=== PATIENT | female | born 2000 | race Caucasian/White ===

== ENCOUNTER 2018-01-27 22:15 | Emergency (ER) | payer BC, MEDICAID ==
[~2018-01-27] VITALS: Ht 167.6 cm; Wt 59.0 kg
[~2018-01-27 22:15] MED LIST: OXCA600T5 PO
[2018-01-27 22:46] LABS: BASOPHILS # (AUTO) 0.1 X10'3 (0-0.2); BASOPHILS % (AUTO) 0.4 % (0-1); EOSINOPHILS # (AUTO) 0.4 X10'3 (0-0.9); EOSINOPHILS % (AUTO) 3.1 % (0-6); HEMOGLOBIN 14.2 g/dl (12.0-16.0); LYMPHOCYTES # (AUTO) 2.4 X10'3 (1.1-4.8); LYMPHOCYTES % (AUTO) 17.7 % (21-51); MEAN CORPUSCULAR HEMOGLOBIN 30.7 PG (27.0-31.0); MEAN CORPUSCULAR VOLUME 92.8 FL (78-98); MEAN PLATELET VOLUME 9.5 FL (7.4-10.4); MONOCYTES # (AUTO) 0.9 X10'3 (0-0.9); MONOCYTES % (AUTO) 6.5 % (2-12); NEUTROPHILS % (AUTO) 72.3 % (42-75); PLATELET COUNT 306 X10'3 (140-440); RED BLOOD COUNT 4.64 X10'6 (4.20-5.60); RED CELL DISTRIBUTION WIDTH 13.3 % (11.5-14.5); WHITE BLOOD COUNT 13.8 X10'3 (4.5-11.0)
[2018-01-27 23:00] LABS: ALANINE AMINOTRANSFERASE 27 U/L (12-78); ALBUMIN 4.5 G/DL (3.4-5.0); ALBUMIN/GLOBULIN RATIO 1.3 (1.1-1.5); ALKALINE PHOSPHATASE 74 IU/L (20-180); ANION GAP 9 (8-16); ASPARTATE AMINO TRANSFERASE 19 U/L (10-37); BILIRUBIN,TOTAL 0.4 MG/DL (0.1-1.0); BLOOD UREA NITROGEN 11 MG/DL (7-18); BUN/CREATININE RATIO 13.6 (6.6-38.0); CALCIUM 9.1 MG/DL (8.5-10.1); CHLORIDE 102 MMOL/L (99-107); CREATININE 0.81 MG/DL (0.40-0.90); GLUCOSE 90 MG/DL (70-104); POTASSIUM 3.5 MMOL/L (3.5-5.1); SODIUM 138 MMOL/L (135-145); TOTAL CARBON DIOXIDE 26.7 MMOL/L (24-32); eGFR > 90 ML/MIN
[2018-01-27 23:20] LABS: CLARITY,URINE CLEAR (Clear); COLOR,URINE YELLOW (Yellow); GLUCOSE, URINE NEGATIVE (Neg); KETONES,URINE 15 mg/dl (Neg); LEUKOCYTE ESTERASE ,URINE TRACE (Neg); NITRITES, URINE NEGATIVE (Neg); OCCULT BLOOD,URINE TRACE-INTACT (Neg); PROTEIN,URINE NEGATIVE (Neg); URINE HCG NEGATIVE (NEG); UROBILINOGEN,URINE 0.2 E.U/dL (0.2-1.0)
[2018-01-27 23:26] LABS: UA COLLECTION TYPE CLN CATCH MIDSTREAM
[2018-01-27 23:29] LABS: BACTERIA,URINE FEW /HPF (Neg); MUCUS STRANDS FEW /LPF (Neg); RBC,URINE 0-2 /HPF (0-2); SQUAMOUS EPITHELIAL CELL,UR FEW /LPF (FEW); WBC,URINE 0-4 /HPF (0-4)
[2018-01-27 23:51] LABS: LIPASE 82 U/L (73-393)
[2018-01-28] MEDS: ketorolac trometh. 30mg/ml inj. IV ONE (00:24)
[2018-01-28] MEDS: normal saline 1000ml 1,000 ML IV ONE (00:24)
[2018-01-28] MEDS: metoclopramide 5 mg/ml inj IV ONE (00:24)
[2018-01-28] MEDS ORDERED: ONDA8TAB9 PO (01:25)
[2018-01-28] MEDS: ondansetron/PF 4mg/2ml inj IV ONE (01:43)
[2018-01-28 01:46] VITALS: BP 105/79
== END 2018-01-28 01:54 | disposition home or self-care (01) ==
LOC: ER 22:16
DX: K29.70 Gastritis, unspecified, without bleeding (principal); N92.6 Irregular menstruation, unspecified; Z88.2 Allergy status to sulfonamides; W21.05XA Struck by basketball, initial encounter; Y93.67 Activity, basketball; Y92.89 Other specified places as the place of occurrence of the external cause; Y99.8 Other external cause status
CPT/HCPCS: 36415; 80053; 81001; 81025; 83690; 85025; 87088; 96374; 96375; 99283; J1885; J2405; J2765; J7030

== ENCOUNTER 2020-08-23 14:28 | Emergency (ER) | payer BC, MEDICAID ==
[~2020-08-23] VITALS: Ht 167.6 cm; Wt 68.4 kg
[~2020-08-23 14:28] MED LIST changes: +ONDA8TAB9 PO
[2020-08-23 15:51] VITALS: BP 128/81
== END 2020-08-23 22:01 | disposition left against medical advice (07) ==
LOC: EEVIPCON 14:30 → ER 14:30
DX: T76.21XA Adult sexual abuse, suspected, initial encounter (principal); Z53.21 Procedure and treatment not carried out due to patient leaving prior to being seen by health care provider; Y09 Assault by unspecified means

== ENCOUNTER 2021-11-14 03:13 | Emergency (ER) | payer BC, MEDICAID ==
[~2021-11-14] VITALS: Ht 167.6 cm; Wt 72.7 kg
--- NOTE | 2021-11-14 03:40 | NUR ---
PT ADAMANTLY REFUSED ALL TREATMENT AND TESTING WHEN TALKING TO DR PEREZ. I WAS PRESENT IN ROOM WHEN PT REFUSED TX AND TESTING.
[2021-11-14 03:47] VITALS: BP 119/90
== END 2021-11-14 03:50 ==
LOC: ER 03:14
DX: Z00.8 Encounter for other general examination (principal); F41.9 Anxiety disorder, unspecified; F32.A Depression, unspecified; F17.200 Nicotine dependence, unspecified, uncomplicated; Z88.1 Allergy status to other antibiotic agents; Z88.8 Allergy status to other drugs, medicaments and biological substances; Z79.899 Other long term (current) drug therapy
CPT/HCPCS: 99283

== ENCOUNTER 2022-04-25 10:16 | Emergency (ER) | payer BC, MEDICAID ==
[~2022-04-25] VITALS: Ht 167.6 cm; Wt 70.5 kg
[2022-04-25 10:23] VITALS: BP 116/72
[2022-04-25] MEDS ORDERED: amox tr/potassium clavulanate 875/125mg TAB PO ONE (12:00)
[2022-04-25] MEDS ORDERED: AMOX-117 PO (12:26)
== END 2022-04-25 12:51 | disposition home or self-care (01) ==
LOC: ER 10:18
DX: J32.9 Chronic sinusitis, unspecified (principal); H92.09 Otalgia, unspecified ear; F41.9 Anxiety disorder, unspecified; F32.9 Major depressive disorder, single episode, unspecified; Z88.2 Allergy status to sulfonamides; Z88.8 Allergy status to other drugs, medicaments and biological substances; Z79.899 Other long term (current) drug therapy
CPT/HCPCS: 99283

== ENCOUNTER 2022-07-09 11:44 | Emergency (ER) | payer BC, MEDICAID ==
[~2022-07-09] VITALS: Ht 170.2 cm; Wt 102.4 kg
[2022-07-09 12:25] LABS: URINE HCG NEGATIVE (NEG)
[2022-07-09 12:35] LABS: CLARITY,URINE SLIGHTLY CLOUDY (Clear); COLOR,URINE YELLOW (Yellow); GLUCOSE, URINE NEGATIVE (Neg); KETONES,URINE NEGATIVE (Neg); LEUKOCYTE ESTERASE ,URINE SMALL (Neg); NITRITES, URINE NEGATIVE (Neg); OCCULT BLOOD,URINE NEGATIVE (Neg); PROTEIN,URINE NEGATIVE (Neg); UROBILINOGEN,URINE 0.2 E.U/dL (0.2-1.0)
[2022-07-09 12:40] LABS: BASOPHILS # (AUTO) 0.1 X10'3 (0-0.2); BASOPHILS % (AUTO) 0.7 % (0-1); EOSINOPHILS # (AUTO) 0.1 X10'3 (0-0.9); EOSINOPHILS % (AUTO) 1.2 % (0-6); HEMATOCRIT 37.5 % (35.0-45.0); HEMOGLOBIN 12.3 g/dl (12.0-16.0); LYMPHOCYTES # (AUTO) 2.4 X10'3 (1.1-4.8); LYMPHOCYTES % (AUTO) 27.9 % (21-51); MEAN CORPUSCULAR HEMOGLOBIN 28.5 PG (27.0-31.0); MEAN CORPUSCULAR HGB CONC 32.9 g/dL (33.0-36.5); MEAN CORPUSCULAR VOLUME 86.8 FL (78-98); MEAN PLATELET VOLUME 9.9 FL (7.4-10.4); MONOCYTES # (AUTO) 0.7 X10'3 (0-0.9); MONOCYTES % (AUTO) 7.6 % (2-12); NEUTROPHILS # (AUTO) 5.4 X10'3 (1.8-7.7); NEUTROPHILS % (AUTO) 62.6 % (42-75); PLATELET COUNT 313 X10'3 (140-440); RED BLOOD COUNT 4.32 X10'6 (4.20-5.60); WHITE BLOOD COUNT 8.7 X10'3 (4.5-11.0)
[2022-07-09 12:43] LABS: UA COLLECTION TYPE CLN CATCH MIDSTREAM
[2022-07-09 12:47] LABS: BACTERIA,URINE 3+ /HPF (Neg); RBC,URINE NONE SEEN /HPF (0-2); SQUAMOUS EPITHELIAL CELL,UR MANY /LPF (FEW)
[2022-07-09 12:48] LABS: ALANINE AMINOTRANSFERASE 19 U/L (12-78); ALBUMIN 4.2 G/DL (3.4-5.0); ALBUMIN/GLOBULIN RATIO 1.1 (1.1-1.5); ALKALINE PHOSPHATASE 81 IU/L (46-116); ANION GAP 7 (8-16); ASPARTATE AMINO TRANSFERASE 10 U/L (10-37); BILIRUBIN,TOTAL 0.2 MG/DL (0.1-1.0); BLOOD UREA NITROGEN 10 MG/DL (7-18); BUN/CREATININE RATIO 12.8 (10.0-20.0); CALCIUM 8.8 MG/DL (8.5-10.1); CHLORIDE 103 MMOL/L (99-107); CREATININE 0.78 MG/DL (0.40-0.90); GLUCOSE 89 MG/DL (70-104); LIPASE 54 U/L (73-393); POTASSIUM 3.9 MMOL/L (3.5-5.1); SODIUM 138 MMOL/L (135-145); TOTAL CARBON DIOXIDE 28.1 MMOL/L (24-32); TOTAL PROTEIN 7.9 G/DL (6.4-8.2); eGFR > 90 ML/MIN
[2022-07-09] MEDS ORDERED: sucralfate 1 gm tablet PO ONE (14:00)
[2022-07-09] MEDS ORDERED: LIDOcaine Viscous 15ml cup MM ONE (14:00)
[2022-07-09] MEDS ORDERED: ondansetron 4mg rapidly disintigrating tab PO ONE (14:00)
[2022-07-09] MEDS ORDERED: mag hydrox/Alum hydrox/simeth 30ml oral suspension PO ONE (14:00)
[2022-07-09 15:03] VITALS: BP 114/72
== END 2022-07-09 15:05 | disposition home or self-care (01) ==
LOC: ER 11:44
DX: K29.00 Acute gastritis without bleeding (principal); M54.6 Pain in thoracic spine; Z88.2 Allergy status to sulfonamides
CPT/HCPCS: 36415; 80053; 81001; 81025; 83690; 85025; 99283

== ENCOUNTER 2024-02-18 10:20 | Emergency (ER) | payer BC, MEDICAID ==
[~2024-02-18] VITALS: Ht 167.6 cm; Wt 67.1 kg
[2024-02-18 10:26] VITALS: BP 140/90; PULSE 118; RESP 18; TEMP 98.4; O2SAT 96
== END 2024-02-18 13:17 | disposition left against medical advice (07) ==
LOC: ER 10:20
DX: J02.9 Acute pharyngitis, unspecified (principal); R05.9 Cough, unspecified; R09.89 Other specified symptoms and signs involving the circulatory and respiratory systems; Z53.21 Procedure and treatment not carried out due to patient leaving prior to being seen by health care provider